=== PATIENT | male | born 1995 | race Caucasian/White ===

== ENCOUNTER 2016-10-09 03:22 | Emergency (ER) | payer OTHER ==
[2016-10-09] MEDS ORDERED: METHYLPREDNISOLONE INJ 125 MG/2 ML SDV IV ONE (04:21)
[2016-10-09] MEDS ORDERED: ALBUTEROL SULFATE 0.083% NEB 2.5 MG/3 ML AMPUL NEB ONE (04:21)
[2016-10-09] MEDS ORDERED: ONDANSETRON HCL INJ/PF 4 MG/2 ML SDV IV ONE (04:34)
--- NOTE | 2016-10-09 04:38 | ER Document Report ---
ED Respiratory Problem - General Mode of Arrival: Ambulatory Information source: Patient TRAVEL OUTSIDE OF THE [place] IN LAST 30 DAYS: No - HPI Patient complains to provider of: Cough - General Chief Complaint: Chest Tightness Stated Complaint: CHEST PAIN Time Seen by Provider: 10/09/16 04:15 Notes: Patient is a 21 year old male who presents to the ED with complaints of coughing and wheezing for 2 months. Patient states the past 3 weeks he has also had nasal congestion and muffled hearing the past 3 weeks. [place] and an inhaler with no relief. Patient states he also had an x ray done but states that he has not heard back on results. Patient denies taking any allergy medication. Patient is a smoker. Patient states his inhaler ran out 2 days ago and that it was helping with the wheezing. Patients symptoms are exacerbated by laying flat. Patient denies any chest pain. No other concerns or complaints at this time. ( AMELIA FLORES) Past Medical History - General Information source: Patient - Social History Smoking Status: Current Every Day Smoker Family History: Reviewed & Not Pertinent Patient has suicidal ideation: No Patient has homicidal ideation: No Renal/ Medical History: Denies: Hx Peritoneal Dialysis Surgical Hx: Negative Review of Systems - Review of Systems Constitutional: No symptoms reported EENT: See HPI, Nose congestion, Other - decreased hearing Cardiovascular: No symptoms reported Respiratory: See HPI, Cough, Wheezing Gastrointestinal: No symptoms reported Genitourinary: No symptoms reported Male Genitourinary: No symptoms reported Musculoskeletal: No symptoms reported Skin: No symptoms reported Hematologic/Lymphatic: No symptoms reported Neurological/Psychological: No symptoms reported Physical Exam - General General appearance: Appears well, Alert In distress: None - HEENT Head: Normocephalic, Atraumatic Eyes: Normal Extraocular movements intact: Yes Pupils: PERRL - Respiratory Respiratory status: No respiratory distress Breath sounds: Normal - Cardiovascular Rhythm: Regular Heart sounds: Normal auscultation Murmur: No - Abdominal Inspection: Normal Distension: No distension Tenderness: Nontender - Back Back: Normal - Extremities General upper extremity: Normal inspection, Normal ROM General lower extremity: Normal inspection, Normal ROM - Neurological Neuro grossly intact: Yes Cognition: Normal Orientation: AAOx4 [place] Coma Scale Eye Opening: Spontaneous [place] Coma Scale Verbal: Oriented [place] Coma Scale Motor: Obeys Commands [place] Coma Scale Total: 15 Speech: Normal - Psychological Associated symptoms: Normal affect, Normal mood - Skin Skin Temperature: Warm Skin Moisture: Dry Skin Color: Normal Course - Re-evaluation Re-evalutation: 10/09/16 04:56 Patient presents emergency department with a chief complaint of cough and wheezing for 2 months as well as nasal congestion. [place] which has helped but he ran out of it. He is a daily smoker denies any history of lung problems in the past denies any fevers or chills he has not had any chest pain or pressure it gets a little tight when he begins to wheeze. He has significant nasal congestion says he cannot breathe through his nose and only other thing is try the Sudafed. He has no history of asthma recent history of travel surgery immobilization DVT or pulmonary emboli. He is not febrile tachypneic or tachycardic and his pulse ox is 9495% on room air. Well-appearing nontoxic lungs are clear no expiratory wheeze or respiratory distress went ahead and did a chest x-ray which is negative for acute pathology. Given some breathing treatments and steroids. And send him home on Nasonex Claritin decongestant albuterol and steroids are primary care physician in 3-4 days and discussed reasons for ED return sooner (TIMMY MEDINA) - Vital Signs Vital signs: Temp Pulse Resp BP Pulse Ox 98.0 F 89 16 149/89 H 96 10/09/16 03:33 10/09/16 03:33 10/09/16 05:13 10/09/16 05:13 10/09/16 05:18 Discharge - Discharge Clinical Impression: Bronchitis acute Condition: Stable Disposition: HOME, SELF-CARE Additional Instructions: Bronchitis You have acute bronchitis. This disease is an infection or inflammation of the air passageways in your lungs. Symptoms usually include cough, low grade fever, shortness of breath, and wheezing. The cough usually persists for a couple of weeks. Most cases of bronchitis get better without antibiotics. We prescribe antibiotics when we believe bacteria are damaging your airways, or if there's high risk the bronchitis will worsen into pneumonia. Increase your fluid intake. A cool mist humidifier may make your lungs more comfortable. An expectorant (cough medicine that loosens phlegm) can help. If you smoke, STOP!!! Recovery from bronchitis can be somewhat slow, but you should see improvement within a day or two. Repeated episodes of bronchitis may result in lung damage -- for example, chronic bronchitis, recurrent pneumonias, or emphysema. Call the doctor if you develop increasing fever, shortness of breath, chest pain, bloody sputum, or otherwise worsen. If you have not improved at all after several days, contact the physician. [place] stop smoking return for increasing worsening or new symptoms Prescriptions: Albuterol Sulfate [Proair HFA Inhalation Aerosol 8.5 gm MDI] 2 puff IH Q4H PRN # 1 mdi PRN Reason: Loratadine/Pseudoephedrine Sul [Claritin-D 24 Hour Tablet] 1 tab PO DAILY #12 tab.sr.24h Mometasone Furoate [Nasonex] 1 spray NS Q12 #1 spray.pump Prednisone [Deltasone 20 mg Tablet] 3 tab PO DAILY 5 Days Scribe Attestation: 10/09/16 04:56 I personally performed the services described in the documentation reviewed the documentation recorded by my scribe in my presence and it accurately and completely records my words and actions (TIMMY MEDINA) Scribe Documentation - Scribe Written by [place]:: [place] Winter, 10/09/2016, 0438 acting as scribe for :: Roberto
--- NOTE | 2016-10-09 04:45 | RADIOLOGY REPORT (SQ) ---
EXAM DESCRIPTION: CHEST PA/LAT COMPLETED DATE/TIME: 10/09/2016 4:36 am REASON FOR STUDY: chest pain, SOB COMPARISON: None. EXAM PARAMETERS: NUMBER OF VIEWS: two views TECHNIQUE: Digital Frontal and Lateral radiographic views of the chest acquired. RADIATION DOSE: NA LIMITATIONS: none FINDINGS: LUNGS AND PLEURA: No consolidation, pneumothorax or pleural effusion. MEDIASTINUM AND HILAR STRUCTURES: No masses or contour abnormalities. HEART AND VASCULAR STRUCTURES: Heart normal size. No evidence for failure. BONES: No acute findings. HARDWARE: None in the chest. IMPRESSION: No acute radiographic finding in the chest. TECHNICAL DOCUMENTATION: JOB ID: [id number] All Rights Reserved
[2016-10-09 05:20] VITALS: BP 149/89
== END 2016-10-09 05:20 | disposition home or self-care (01) ==
LOC: ER 03:22
DX: J20.9 Acute bronchitis, unspecified (principal); R07.9 Chest pain, unspecified; R05 Cough; R06.2 Wheezing; R09.81 Nasal congestion; F17.200 Nicotine dependence, unspecified, uncomplicated
CPT/HCPCS: 94640; 99284; 96374; 96375; 71020; J2930; J2405